=== PATIENT | male | born 1935 | race American Indian/Alaskan Native ===

== ENCOUNTER 2021-01-07 06:53 | Observation (INO) | payer MEDICARE ==
[2021-01-07] MEDS ORDERED: SODIUM CHLORIDE 0.9% 500 ML 500 ML ONE (07:47)
[2021-01-07] MEDS ORDERED: ASPIRIN EC 325 MG TAB PO ONE (07:48)
[2021-01-07 07:49] LABS: Basophils % (Auto) 0.7 % (0.0-1.8); Eosinophils # (Auto) 0.2 K/mm3 (0.0-0.4); Eosinophils % (Auto) 3.8 % (0.0-4.3); Hemoglobin 9.6 gm/dl (11.8-15.2); Lymphocytes # (Auto) 1.4 K/mm3 (1.2-5.4); Lymphocytes % (Auto) 25.8 % (13.4-35.0); Mean Corpuscular HGB Conc 33 % (32-34); Mean Corpuscular Volume 72 fl (84-94); Monocytes # (Auto) 0.5 K/mm3 (0.0-0.8); Monocytes % (Auto) 8.5 % (0.0-7.3); Platelet Count 213 K/mm3 (140-440); Red Blood Count 4.03 M/mm3 (3.65-5.03); Red Cell Distribution Width 17.2 % (13.2-15.2)
[2021-01-07 07:59] LABS: INR 1.02 (0.87-1.13)
[2021-01-07 08:00] LABS: BUN/Creatinine Ratio 12; Blood Urea Nitrogen 13 mg/dL (9-20); Calcium 9.2 mg/dL (8.4-10.2)
[2021-01-07] MEDS ORDERED: ASPIRIN EC 325 MG TAB PO SCH (08:00)
[2021-01-07] MEDS ORDERED: SODIUM CHLORIDE 0.9% 500 ML 500 ML IV SCH (08:00)
[2021-01-07] MEDS ORDERED: CLOPIDOGREL 75 MG TAB PO SCH (08:30)
--- NOTE | 2021-01-07 09:22 | Electrocardiograph Report ---
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
[2021-01-07] MEDS ORDERED: HEPARIN/NS 5000 UNIT/500ML 1,000 ML IR ONE (09:46)
[2021-01-07] MEDS ORDERED: NITROGLYCERIN SYRINGE 3 ML ONE (09:47)
[2021-01-07] MEDS ORDERED: VERAPAMIL 5 MG/2 ML INJ ONE (09:47)
[2021-01-07] MEDS ORDERED: SODIUM CHLORIDE 0.9% 100 ML ONE (10:22)
[2021-01-07] MEDS: MIDAZOLAM 2 MG/2 ML INJ ONE ×2 (10:47→10:51)
[2021-01-07] MEDS: fentaNYL 100 MCG/2 ML INJ ONE ×3 (10:47→11:30)
[2021-01-07] MEDS: LIDOCAINE (2%) 20 MG/1 ML VIAL 20 ML MDV INFILTRATI ONE ×2 (10:48→10:52)
[2021-01-07] MEDS: HEPARIN 10,000 UNITS/10 ML VIAL ONE ×3 (10:53→11:30)
[2021-01-07] MEDS: ADENOSINE 60 MG/20 ML VIAL ONE (11:09)
[2021-01-07] MEDS ORDERED: ATROPINE 0.1% (1 MG/10 ML) CARDIAC SYRINGE ONE (11:19)
[2021-01-07] MEDS ORDERED: CLOPIDOGREL 75 MG TAB ONE (11:46)
[2021-01-07] MEDS ORDERED: ALUM-MAG HYDROXIDE-SIMETHICONE 200-200-20MG/5ML ORAL LIQD 30 ML ONE (11:47)
[2021-01-07] MEDS ORDERED: ZOLPIDEM 5 MG TAB PO PRN (12:10)
[2021-01-07] MEDS ORDERED: ONDANSETRON 4 MG/2 ML INJ IV PRN (12:10)
[2021-01-07] MEDS ORDERED: traMADol 50 MG TAB PO PRN (12:10)
[2021-01-07] MEDS ORDERED: SODIUM CHLORIDE 0.9% 1000 ML 1,000 ML IV SCH (12:15)
--- NOTE | 2021-01-07 12:23 | Event Note ---
Date: 01/07/21 Patient presented for outpatient coronary intervention. We performed FFR of the mid LAD 50 to 60% stenosis, nonsignificant FFR at 0.96. We then proceeded with coronary angioplasty and stenting of the 85% stenosis of the mid obtuse marginal branch of the circumflex. Excellent angiographic result, no complications. We anticipate discharge tomorrow morning after post procedure observation. Patient will be managed with optimal guideline directed medical therapy including dual oral antiplatelets with Plavix and aspirin.
[2021-01-07] MEDS ORDERED: ACETAMINOPHEN 325 MG TAB PO PRN (12:30)
--- NOTE | 2021-01-07 13:10 | Cardiac Catherization Report ---
DATE OF SERVICE: 01/07/2021 CORONARY ANGIOPLASTY REPORT REASON FOR PROCEDURE: The patient is an 85-year-old man who underwent a cardiac catheterization at another hospital, that revealed multivessel disease. There was a 50-60% stenosis of the LAD, and 85% stenosis of the mid obtuse marginal branch of the circumflex, and another 30-40% stenosis of the right coronary artery. He was recommended for coronary intervention. After review of his angiograms, we recommended FFR measurements to assess physiologic significance of the mid LAD stenosis, followed by coronary intervention to the 85% stenosis of the mid obtuse marginal. The risks and benefits were discussed with the patient and he consented to proceed. PROCEDURES: 1. FFR assessment of the mid LAD stenosis. 2. Coronary angioplasty and stenting of the mid obtuse marginal branch of the circumflex. 3. Sedation time start 10:47 and 11:29. The patient was prepped and draped in a sterile fashion after informed consent. Right radial cath site was prepped and draped after negative Wilfredo's test. The right radial artery was entered using Seldinger technique followed by placement of a 6-[place] hydrophilic sheath. Routine radial cocktail was administered via the sheath. We cannulated the left coronary artery using an XB 3.0 guiding catheter. Following preintervention angiograms, a FFR pressure wire was then directed into the LAD. After wire placement in the distal LAD, the patient was administered with 140 mcg per kilogram per minute of adenosine intravenously, over 4 minutes. Pressure difference across the LAD stenosis was recorded. Over the period of 4 minutes, the lowest pressure difference was 0.96. After recording a nonsignificant FFR, we then proceeded with coronary intervention to the circumflex. The FFR pressure wire was then withdrawn, to be replaced with a 0.014 inch [employer] 50 guidewire, which was then directed into the circumflex. After crossing the mid obtuse marginal stenosis, we then predilated the lesion using a 2.5 mm balloon catheter. A 2.75 x 18 mm drug-eluting stent was then deployed across the lesional segment of the mid obtuse marginal, and the stent inflated to optimal pressures, achieving a vessel diameter of 3.0 mm. Following stenting, the wire and the balloon catheters were removed, and post-intervention angiograms were taken, revealing an excellent angiographic result, zero residual stenosis and NAZIA 3 flow down the circumflex system. The catheters and the sheaths were removed, hemostasis achieved using a TR band. The patient was returned to the postprocedure unit in stable condition. There were no complications. CONCLUSIONS: 1. Two-vessel coronary artery disease with a 50-60% mid LAD stenosis, and an 85% stenosis of the mid obtuse marginal. 2. FFR measurement of the LAD was 0.96, no indication for coronary intervention to the LAD. 3. Successful angioplasty and stenting of the mid obtuse marginal, with deployment of a 2.75 mm drug-eluting stent, excellent angiographic result. RECOMMENDATIONS: The patient will be placed on optimal medical therapy including dual oral antiplatelet therapy, recommended for aggressive risk factor modification and serial clinical followup of the nonobstructive disease of the LAD and right coronary arteries. TID: [id number] RECEIPT: [id number] CA/PRE
[2021-01-07] MEDS ORDERED: METOPROLOL SUCCINATE XL 25 MG TAB PO SCH (15:00)
[2021-01-08 05:20] LABS: Basophils % (Auto) 0.6 % (0.0-1.8); Eosinophils # (Auto) 0.2 K/mm3 (0.0-0.4); Eosinophils % (Auto) 3.2 % (0.0-4.3); Hematocrit 26.8 % (35.5-45.6); Hemoglobin 8.6 gm/dl (11.8-15.2); Lymphocytes # (Auto) 1.3 K/mm3 (1.2-5.4); Lymphocytes % (Auto) 23.9 % (13.4-35.0); Mean Corpuscular HGB Conc 32 % (32-34); Mean Corpuscular Volume 72 fl (84-94); Monocytes # (Auto) 0.5 K/mm3 (0.0-0.8); Monocytes % (Auto) 9.3 % (0.0-7.3); Platelet Count 197 K/mm3 (140-440); Red Cell Distribution Width 17.7 % (13.2-15.2)
[2021-01-08 05:58] LABS: BUN/Creatinine Ratio 12; Blood Urea Nitrogen 12 mg/dL (9-20); Calcium 8.7 mg/dL (8.4-10.2); Hemolysis Index 2
[2021-01-08 06:47] LABS: Chol/HDL Ratio 2.18 %; HDL Cholesterol 53 mg/dL (40-59); LDL Cholesterol,Direct 52 mg/dL (50-130)
--- NOTE | 2021-01-08 08:27 | Short Stay Summary ---
Short Stay Documentation Date of service: 01/08/21 - History H&P: obtained from office - Allergies and Medications Current Medications: Allergies No Known Allergies Allergy (Verified 01/07/21 07:26) Home Medications Medication Instructions Recorded Confirmed Last Taken Type Aspirin [Adult Aspirin] 81 mg PO DAILY 01/07/21 01/07/21 01/06/21 History Atorvastatin [Lipitor Tab] 40 mg PO QHS 01/07/21 01/07/21 01/06/21 History Clopidogrel [Plavix] 75 mg PO QDAY 01/07/21 01/07/21 01/06/21 History Omega3,5,6,7,9 No.1/[place] Oil 1 each PO DAILY 01/07/21 01/07/21 01/06/21 History [Complete Flushing Softgel] Omeprazole 20 mg PO DAILY 01/07/21 01/07/21 01/06/21 History Tamsulosin [Flomax] 0.4 mg PO QDAY 01/07/21 01/07/21 01/06/21 History Active Medications Acetaminophen (Acetaminophen 325 Mg Tab) 650 mg PO Q4H PRN PRN Reason: Pain MILD(1-3)/Fever >100.5/PELAEZ Aspirin (Aspirin Ec 81 Mg Tab) 81 mg PO DAILY [facility] Atorvastatin Calcium (Atorvastatin 40 Mg Tab) 40 mg PO QHS [facility] Last Admin: 01/08/21 00:18 Dose: 40 mg Documented by: Clopidogrel Bisulfate (Clopidogrel 75 Mg Tab) 75 mg PO QDAY [facility] Isosorbide Mononitrate (Isosorbide Mononitrate Er 30 Mg Tab) 30 mg PO QDAY [facility] Last Admin: 01/07/21 15:46 Dose: 30 mg Documented by: Metoprolol Succinate (Metoprolol Succinate Xl 25 Mg Tab) 25 mg PO QDAY [facility] Last Admin: 01/07/21 15:46 Dose: 25 mg Documented by: Ondansetron HCl (Ondansetron 4 Mg/2 Ml Inj) 4 mg IV Q8H PRN PRN Reason: N/V unrelieved by Camron Tamsulosin HCl (Tamsulosin 0.4 Mg Cap) 0.4 mg PO QDAY [facility] Tramadol HCl (Tramadol 50 Mg Tab) 50 mg PO Q4H PRN PRN Reason: Pain, Mild (1-3) Zolpidem Tartrate (Zolpidem 5 Mg Tab) 5 mg PO QHS PRN PRN Reason: Sleep - Physical exam General appearance: no acute distress HEENT: PERRLA Lungs: Clear to auscultation Heart: Regular rate, Normal S1, Normal S2 - Brief post op/procedure progress note Procedure: Patient presented for outpatient coronary intervention. We performed FFR of the mid LAD 50 to 60% stenosis, nonsignificant FFR at 0.96. We then proceeded with coronary angioplasty and stenting of the 85% stenosis of the mid obtuse marginal branch of the circumflex. Excellent angiographic result, no complications. Condition: stable - Hospital course Hospital course: Stable overnight observation. Patient will be managed with optimal guideline directed medical therapy including dual oral antiplatelets with Plavix and aspirin. Beta blockers will be held due to asymptomatic, resting sinus bradycardia. - Disposition Condition at discharge: Good Disposition: [id number]-01 TO HOME OR SELFCARE Short Stay Discharge Plan Activity: advance as tolerated Weight Bearing Status: Full Weight Bearing Diet: low fat, low cholesterol, low salt Wound: open to air, keep clean and dry Follow up with: VIJI HALL MD [Staff Physician] - 7 Days Prescriptions: ISOSORBIDE MONOnitrate [Imdur ER] 30 mg PO QDAY #30 tablet Clopidogrel [Plavix] 75 mg PO QDAY #30
--- NOTE | 2021-01-08 08:38 | XRay Report ---
CHEST 1 VIEW 01/08/2021 8:04 AM INDICATION / CLINICAL INFORMATION: Post-PCI. COMPARISON: None available. FINDINGS: SUPPORT DEVICES: None. HEART / MEDIASTINUM: The heart size is normal with a mild left ventricular configuration. Pulmonary v asculature is normal. There is mild aortic tortuosity with calcification in the arch, but no evidence of aneurysm. LUNGS / PLEURA: No significant pulmonary or pleural abnormality. No pneumothorax. ADDITIONAL FINDINGS: No significant additional findings. IMPRESSION: No acute findings. Signer Name: Ben Montes MD Signed: 01/08/2021 8:34 AM Workstation Name: [id number]
[2021-01-08 08:41] VITALS: BP 120/57
[2021-01-08] MEDS ORDERED: ASPIRIN EC 81 MG TAB PO SCH (10:00)
[2021-01-08] MEDS ORDERED: CLOPIDOGREL 75 MG TAB PO SCH (10:00)
[2021-01-08] MEDS ORDERED: TAMSULOSIN 0.4 MG CAP PO SCH (10:00)
--- NOTE | 2021-01-09 09:45 | Electrocardiograph Report ---
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
--- NOTE | 2021-01-09 09:50 | Electrocardiograph Report ---
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
== END 2021-01-08 12:15 | disposition home or self-care (01) ==
LOC: CATHLABREC 06:53 → 4A 12:09
PROVIDERS: ADMIT Internal Medicine Cardiovascular Disease; ATTEND Internal Medicine Cardiovascular Disease
DX: I25.10 Atherosclerotic heart disease of native coronary artery without angina pectoris (principal); I10 Essential (primary) hypertension; E78.5 Hyperlipidemia, unspecified; R94.31 Abnormal electrocardiogram [ECG] [EKG]; K21.9 Gastro-esophageal reflux disease without esophagitis; N40.0 Benign prostatic hyperplasia without lower urinary tract symptoms; R00.1 Bradycardia, unspecified; Z79.82 Long term (current) use of aspirin; Z79.02 Long term (current) use of antithrombotics/antiplatelets
CPT/HCPCS: 36415; 71045; 80048; 80061; 84484; 85025; 85610; 93005; 93571; 96361; 96365; A9270; C1725; C1769; C1874; C1887; C1894; C9600; G0378; J0153; J1644; J2250; J3010; J7030; J7040; 92928; J0461; Q9967